=== PATIENT | female | born 1995 | race African-American/Black ===

== ENCOUNTER 2017-01-29 10:48 | Emergency (ER) | payer MEDICAID ==
[2017-01-29 10:55] VITALS: BP 110/67
--- NOTE | 2017-01-29 12:00 | UC ---
Throat Pain/Nasal Dieudonne HPI - HPI Summary HPI Summary: FOUR DAYS OF SINUS & FACIAL PRESSURE, FEVER. NO ALLERGIES. NO RASHES. NO SORE THROAT. - History of Current Complaint Chief Complaint: UCRespiratory Stated Complaint: SINUS ISSUE Time Seen by Provider: 01/29/17 11:11 Hx Obtained From: Patient Hx Last Menstrual Period: 01/23/17 Onset/Duration: Gradual Onset, Lasting Days, Worse Since - PROGRESSIVE Severity: Moderate Pain Intensity: 0 Pain Scale Used: 0-10 Numeric Cough: None Associated Signs & Symptoms: Positive: Sinus Discomfort, Nasal Discharge, Fever - Epiglottits Risk Factors Epiglottis Risk Factors: Negative - Allergies/Home Medications Allergies/Adverse Reactions: Allergies Allergy/AdvReac Type Severity Reaction Status Date / Time No Known Allergies Allergy Verified 03/29/15 10:59 PMH/Surg Hx/FS Hx/Imm Hx Previously Healthy: Yes - Surgical History Surgical History: None - Social History Occupation: Student Lives: With Family Alcohol Use: Occasionally Substance Use Type: None Smoking Status (MU): Current Every Day Smoker Type: Cigarettes Amount Used/How Often: <1/2 PPD Household Exposure Type: Cigarettes - Immunization History Vaccination Up to Date: Yes Review of Systems Constitutional: Negative Skin: Negative Eyes: Negative ENT: Nasal Discharge, Sinus Congestion Respiratory: Negative Cardiovascular: Negative Gastrointestinal: Negative Genitourinary: Negative Motor: Negative Neurovascular: Negative Musculoskeletal: Negative Neurological: Negative Psychological: Negative All Other Systems Reviewed And Are Negative: Yes Physical Exam Triage Information Reviewed: Yes Appearance: Well-Appearing, No Pain Distress, Well-Nourished Vital Signs: Initial Vital Signs Temp 99.1 F 01/29/17 10:52 Pulse 78 01/29/17 10:52 Resp 16 01/29/17 10:52 BP 110/67 01/29/17 10:52 Pulse Ox 100 01/29/17 10:52 Vital Signs Reviewed: Yes Eye Exam: Normal ENT: Positive: Pharynx normal, Nasal congestion, TM bulging, TM dull Dental Exam: Normal Neck exam: Normal Neck: Positive: Supple, Nontender, No Lymphadenopathy Respiratory Exam: Normal Respiratory: Positive: Chest non-tender, Lungs clear, Normal breath sounds, No respiratory distress, No accessory muscle use Cardiovascular Exam: Normal Cardiovascular: Positive: RRR, No Murmur, Pulses Normal Abdominal Exam: Normal Abdomen Description: Positive: Nontender, No Organomegaly Musculoskeletal Exam: Normal Musculoskeletal: Positive: Strength Intact, ROM Intact, No Edema Neurological Exam: Normal Psychological Exam: Normal Psychological: Positive: Normal Response To Family Skin Exam: Normal Throat Pain/Nasal Course/Dx - Differential Dx/Diagnosis Differential Diagnosis/HQI/PQRI: Tonsillitis, URI Provider Diagnoses: SINUSITIS Discharge - Discharge Plan Condition: Stable Disposition: HOME Prescriptions: Amoxicillin/Clavulanate TAB* [Augmentin TAB 875*] 875 mg PO BID #20 tab Fluticasone NASAL SPRAY 50MCG* [Flonase NASAL SPRAY 50MCG*] 2 spray BOTH NARES DAILY #1 btl Patient Education Materials: Sinusitis (ED) Referrals: [facility] [place] [facility] REFERRAL [Outside] Additional Instructions: PRIMARY CARE: There are four major types of clinical preventive care: immunizations, screening , behavioral counseling (sometimes referred to as lifestyle changes), and chemoprevention. All four apply throughout the life span. It is important to establish and to have access to a Primary Care Physician, not only for follow- up regrding acute and chronic problems, but also for preventative care.
== END 2017-01-29 11:52 | disposition home or self-care (01) ==
LOC: UCEAST 10:48
DX: J32.9 Chronic sinusitis, unspecified (principal); Z72.0 Tobacco use
CPT/HCPCS: 99212; G0463

== ENCOUNTER 2017-02-02 11:50 | Emergency (ER) | payer MEDICAID ==
[2017-02-02 11:58] VITALS: BP 104/66
--- NOTE | 2017-02-02 12:24 | UC ---
Ear Complaint HPI - HPI Summary HPI Summary: 21 YO FEMALE ON 4TH DAY OF AUGMENTIN FOR SINUSITIS HERE SINUSES ARE BETTER BUT NOW SHE COMPLAINS OF -YEAST VAGINAL INFECTION -RIGHT OTALGIA AND DECREASED HEARING -RIGHT CERVICAL SWOLLEN GLAND NO F/C - History of Current Complaint Chief Complaint: UCGeneralIllness Stated Complaint: SINUS/EAR/THROAT & YEAST INF Time Seen by Provider: 02/02/17 12:04 Hx Obtained From: Patient Hx Last Menstrual Period: Depo Shot Onset/Duration: Sudden Onset, Lasting Days Severity Initially: Mild Severity Currently: Mild Pain Intensity: 2 Pain Scale Used: 0-10 Numeric Associated Signs/Symptoms: Positive: Hearing Loss, URI Symptoms - NOW RESOLVED - Allergies/Home Medications Allergies/Adverse Reactions: Allergies Allergy/AdvReac Type Severity Reaction Status Date / Time No Known Allergies Allergy Verified 02/02/17 11:58 PMH/Surg Hx/FS Hx/Imm Hx Previously Healthy: Yes - Surgical History Surgical History: None - Family History Known Family History: Positive: Hypertension - Social History Alcohol Use: None Substance Use Type: None Smoking Status (MU): Heavy Every Day Tobacco Smoker Type: Cigarettes Amount Used/How Often: 1ppd Household Exposure Type: Cigarettes - Immunization History Vaccination Up to Date: Yes Review of Systems Constitutional: Negative Skin: Negative Eyes: Negative ENT: Sore Throat, Ear Ache Respiratory: Negative Cardiovascular: Negative Gastrointestinal: Negative Genitourinary: Negative Motor: Negative Neurovascular: Negative Musculoskeletal: Negative Neurological: Negative Psychological: Negative All Other Systems Reviewed And Are Negative: Yes Physical Exam Triage Information Reviewed: Yes Appearance: Well-Appearing, No Pain Distress, Well-Nourished Vital Signs: Initial Vital Signs Temp 98.8 F 02/02/17 11:54 Pulse 106 02/02/17 11:54 Resp 16 02/02/17 11:54 BP 104/66 02/02/17 11:54 Pulse Ox 100 02/02/17 11:54 Vital Signs Reviewed: Yes Eyes: Positive: Conjunctiva Clear ENT: Positive: Pharynx normal, TM bulging - RIGHT. Negative: Hearing grossly normal, Nasal congestion, Nasal drainage, Tonsillar swelling, Tonsillar exudate , Trismus, Muffled/hoarse voice Dental: Negative: Dental Fracture @ Neck: Positive: Supple, Enlarged Nodes @ - RIGHT ANT CERVICAL Respiratory: Positive: Lungs clear, Normal breath sounds, No respiratory distress Cardiovascular: Positive: RRR, No Murmur Musculoskeletal: Positive: ROM Intact Neurological: Positive: Alert Skin Exam: Normal Ear Complaint Course/Dx - Differential Dx/Diagnosis Provider Diagnoses: RIGHT CERVICAL ADENOPATHY. RIGHT SEROUS OTITIS MEDIA. YEAST VAGINITS BY HISTORY Discharge - Discharge Plan Condition: Stable Disposition: HOME Prescriptions: Fluconazole 150 MG (NF) [Diflucan 150 mg (NF)] 150 mg PO WEEKLY #2 tab Prednisone 60 mg PO DAILY #9 tab Patient Education Materials: Vulvovaginal Candidiasis (ED), Serous Otitis Media (ED) Referrals: [facility], [Primary Care Provider] - Additional Instructions: RECHECK FOR NEW OR WORSENING SYMPTOMS
== END 2017-02-02 12:20 | disposition home or self-care (01) ==
LOC: UCEAST 11:50
DX: R59.9 Enlarged lymph nodes, unspecified (principal); H65.91 Unspecified nonsuppurative otitis media, right ear; B37.3 Candidiasis of vulva and vagina; Z72.0 Tobacco use
CPT/HCPCS: 99212; G0463

== ENCOUNTER 2017-02-07 11:20 | Emergency (ER) | payer MEDICAID ==
[2017-02-07 11:30] VITALS: BP 103/67
[2017-02-07 12:49] LABS: EBV Response YES
--- NOTE | 2017-02-07 14:13 | UC ---
Lana Paniagua Alfonso, scribed for Zaid Gonzalez MD on 02/07/17 at 1212 . Skin Complaint HPI - HPI Summary HPI Summary: This patient is a 21 year old female presenting to [facility] c/o a diffuse rash since yesterday. The rash is pruritic and erythematous. Pt was discharged from [facility] on 02/02 with a prescription for Augmentin. Sx aggravated and alleviated by nothing. She reports sore throat (a few days) and sinus congestion (a few days). She denies SOB. Tobacco abuse disorder. Reports no known allergies. - History of Current Complaint Chief Complaint: UCRas Time Seen by Provider: 02/07/17 11:53 Stated Complaint: RASH Hx Obtained From: Patient Onset/Duration: Sudden Onset, Lasting Days - Yesterday, Still Present Timing: Constant Onset Severity: Moderate Current Severity: Moderate Location: Diffuse Aggravating: Nothing Alleviating: Nothing Associated Signs & Symptoms: Positive: Rash. Negative: Difficulty Breathing - Allergy/Home Medications Allergies/Adverse Reactions: Allergies Allergy/AdvReac Type Severity Reaction Status Date / Time No Known Allergies Allergy Verified 02/02/17 11:58 Review of Systems Skin: Rash - Diffuse ENT: Other - Negative SOB; Positive sore throat and sinus congestion All Other Systems Reviewed And Are Negative: Yes PMH/Surg Hx/FS Hx/Imm Hx - Surgical History Surgical History: None - Family History Known Family History: Positive: Hypertension - Social History Alcohol Use: None Substance Use Type: None Smoking Status (MU): Heavy Every Day Tobacco Smoker Type: Cigarettes Amount Used/How Often: 1ppd Household Exposure Type: Cigarettes - Immunization History Vaccination Up to Date: Yes Physical Exam Triage Information Reviewed: Yes Vital Signs: Initial Vital Signs Temp 98.1 F 02/07/17 11:25 Pulse 89 02/07/17 11:25 Resp 16 02/07/17 11:25 BP 103/67 02/07/17 11:25 Pulse Ox 100 02/07/17 11:25 Vital Signs Reviewed: Yes - Additional Comments The patient is well-nourished in no acute distress and in no acute pain. The skin is warm and dry and skin color reflects adequate perfusion. Diffuse maculopapular rashes at all extremities, chest, and trunk. This represents a most likely drug eruption rash. HEENT: The head is normocephalic and atraumatic. The pupils are equal and reactive. The conjunctivae are clear and without drainage. Nares are patent and without drainage. Tonsils are not enlarged. No exudates. Mouth reveals moist mucous membranes and the throat is without erythema and exudate. The external ears are intact. The ear canals are patent and without drainage. The tympanic membranes are intact. Neck is supple with full range of motion and non-tender. There are no carotid bruits. There is no neck vein distension. Respiratory: Chest is non-tender. Lungs are clear to auscultation and breath sounds are symmetrical and equal. Cardiovascular: Heart is regular rate and rhythm. There is no murmur or rub auscultated. There is no peripheral edema and pulses are symmetrical and equal. Abdomen: The abdomen is soft and non-tender. There are normal bowel sounds heard in all four quadrants and there is no organomegaly palpated. Musculoskeletal: There is good capillary refill. Neurological: Patient is alert and oriented to person, place and time. Psychiatric: The patient has an appropriate affect and does not exhibit any anxiety or depression. Course/Dx - Course Course Of Treatment: A 21-year-old F presents to [facility] with a CC of diffuse rash since yesterday. She reports sore throat (a few days) and sinus congestion (a few days). She denies SOB. Family doctor refers the pt for a monospot. Pt instructed to stop taking Augmentin. Pt will be discharged with PCP follow up in 3 days. Pt is agreeable with this plan. - Differential Diagnoses - Skin Complaint Differential Diagnoses: Allergic Reaction, Drug Rash, Other - mono - Diagnoses Provider Diagnoses: drug rash secondary to amoxicillin Discharge - Discharge Plan Condition: Stable Disposition: HOME Prescriptions: diPHENhydraMINE PO* [Benadryl PO 50 MG CAP*] 50 mg PO Q6H PRN #30 cap PRN Reason: rash predniSONE TAB* [Deltasone TAB*] 60 mg PO DAILY #15 tab Patient Education Materials: Allergies (ED), Antibiotic Medication Allergy (ED) Referrals: [facility], [Primary Care Provider] - 3 Days Additional Instructions: Stop taking Augmentin. The documentation as recorded by the Lana velázquez Alfonso accurately reflects the service I personally performed and the decisions made by , Zaid Gonzalez MD.
[2017-02-07 17:27] LABS: Manual Entry Verification MD; Mono Internal Control QC Line Present
[2017-02-09 12:10] LABS: EBV Capsid Ag IgG Ab Positive (Negative); EBV Capsid Ag IgM Ab Negative (Negative)
== END 2017-02-07 12:20 | disposition home or self-care (01) ==
LOC: UCEAST 11:20
DX: L27.0 Generalized skin eruption due to drugs and medicaments taken internally (principal); T36.0X5A Adverse effect of penicillins, initial encounter; F17.210 Nicotine dependence, cigarettes, uncomplicated
CPT/HCPCS: 36415; 86308; 86664; 86665; 99212; G0463

== ENCOUNTER 2018-04-18 14:07 | Emergency (ER) | payer MEDICAID ==
[2018-04-18 14:22] VITALS: BP 129/61
--- NOTE | 2018-04-18 14:44 | UC ---
Skin Complaint HPI - HPI Summary HPI Summary: 23 yo female presents with bug bites on body. She tells me that she slept at the [facility] last night and woke up this morning with itching to her left arm. Noticed some red spots that looked like bug bites. She thinks she was bitten by bed bugs. Very itchy. Denies fever, chills, drainage, or bleeding. - History of Current Complaint Chief Complaint: UCSkin Time Seen by Provider: 04/18/18 14:44 Stated Complaint: BUG BITE Hx Obtained From: Patient Hx Last Menstrual Period: 04/04/18 Onset/Duration: Sudden Onset Onset Severity: Moderate Current Severity: Moderate Pain Intensity: 6 Pain Scale Used: 0-10 Numeric - Allergy/Home Medications Allergies/Adverse Reactions: Allergies Allergy/AdvReac Type Severity Reaction Status Date / Time No Known Allergies Allergy Verified 04/18/18 14:22 Review of Systems Constitutional: Negative Skin: Other - Bug bites Respiratory: Negative Cardiovascular: Negative Neurovascular: Negative Neurological: Negative Psychological: Negative All Other Systems Reviewed And Are Negative: Yes PMH/Surg Hx/FS Hx/Imm Hx - Additional Past Medical History Additional PMH: None - Surgical History Surgical History: None - Family History Known Family History: Positive: Hypertension - Social History Occupation: Employed Full-time Lives: With Family Alcohol Use: None Substance Use Type: None Smoking Status (MU): Heavy Every Day Tobacco Smoker Type: Cigarettes Amount Used/How Often: 1/2ppd Household Exposure Type: Cigarettes - Immunization History Vaccination Up to Date: Yes Physical Exam - Summary Physical Exam Summary: GENERAL: NAD. WDWN. No pain distress. SKIN: Left neck and left UE with scattered bug bites with mild surrounding erythema. NTTP. No warmth or streaking. No streaking, bleeding, or drainage. NECK: Supple. Nontender. No lymphadenopathy. CHEST: No accessory muscle use. Breathing comfortably and in no distress. CV: Pulses intact. Cap refill <2seconds NEURO: Alert. PSYCH: Age appropriate behavior. Triage Information Reviewed: Yes Vital Signs: Initial Vital Signs Temp 98.1 F 04/18/18 14:19 Pulse 81 04/18/18 14:19 Resp 18 04/18/18 14:19 BP 129/61 04/18/18 14:19 Pulse Ox 100 04/18/18 14:19 Vital Signs Reviewed: Yes Course/Dx - Course Course Of Treatment: Bed bugs. Rx for steroid cream. Advised to change hotel rooms/location. - Diagnoses Provider Diagnoses: Bed bug bites Discharge - Sign-Out/Discharge Documenting (check all that apply): Patient Departure All imaging exams completed and their final reports reviewed: No Studies - Discharge Plan Condition: Stable Disposition: HOME Prescriptions: Triamcinolone 0.1% CREAM(NF) [Kenalog Cream 0.1%(NF)] 1 applic TOPICAL BID #1 tube Patient Education Materials: Bed Bugs (ED) Referrals: No Primary Care Phys,[facility]OP[facility] [Primary Care Provider] - Additional Instructions: If you develop a fever, shortness of breath, chest pain, new or worsening symptoms - please call your PCP or go to the ED. - Billing Disposition and Condition Condition: STABLE Disposition: Home
== END 2018-04-18 15:02 | disposition home or self-care (01) ==
LOC: UCEAST 14:07
DX: S40.862A Insect bite (nonvenomous) of left upper arm, initial encounter (principal); W57.XXXA Bitten or stung by nonvenomous insect and other nonvenomous arthropods, initial encounter; Y93.9 Activity, unspecified; Y92.59 Other trade areas as the place of occurrence of the external cause; F17.210 Nicotine dependence, cigarettes, uncomplicated
CPT/HCPCS: 99212; G0463

== ENCOUNTER 2023-08-27 07:19 | Inpatient (IN) ==
[2023-08-27] MEDS ORDERED: Lactated Ringers 1000 ml BAG 1,000 ML IV ONE (08:18)
[2023-08-27] MEDS ORDERED: Lidocaine 1% VIAL 10 MG/ML 30 ML VIAL INJ PRN (08:18)
[2023-08-27] MEDS ORDERED: Buffered Lidocaine 1% SYRIN 1 ml INTRADERM ONE (08:18)
[2023-08-27] MEDS ORDERED: Witch Hazel PAD JAR TOPICAL PRN (08:22)
[2023-08-27] MEDS ORDERED: Dibucaine 1% OINT 28.35 GM TUBE PR PRN (08:22)
[2023-08-27] MEDS ORDERED: Glycerin ADULT 2.4 gm SUPP PR PRN (08:22)
[2023-08-27] MEDS ORDERED: Oxytocin in LR 20,000 MILLI.UNIT/1,000 ML BAG IV SCH (08:25)
[2023-08-27] MEDS ORDERED: Lactated Ringers 1000 ml BAG 1,000 ML IV SCH ×2 (09:00)
[2023-08-27 11:10] LABS: Hematocrit 34.8 % (35-45); Hemoglobin 10.8 g/dL (11.5-14.3); Mean Corpuscular Hemoglobin 21.8 pg (27-33); Mean Corpuscular Hgb Conc 31.2 g/dL (31-36); Mean Corpuscular Volume 69.9 fL (80-97); Mean Platelet Volume 10.4 fL (7.5-11.2); Platelet Count 190 10^3/uL (150-450); Red Blood Count 4.97 10^6/uL (3.63-4.92); Red Cell Distribution Width 15.4 % (12-17); White Blood Count 11.9 10^3/uL (3.8-11.8)
[2023-08-27 11:20] LABS: Albumin 2.8 g/dL (3.2-5.2); Albumin/Globulin Ratio 0.8 (1-3); Calcium 8.2 mg/dL (8.6-10.3); Creatinine, Serum 0.91 mg/dL (0.51-0.95); Globulin 3.6 g/dL (2-4); Potassium 4.6 mmol/L (3.5-5.0); Total Bilirubin 0.3 mg/dL (0.2-1.0); Total Protein 6.4 g/dL (6.4-8.9); eGFR CKD-EPI 88.7 (>60)
[2023-08-27 12:25] LABS: ABS Lymphocytes 0.8 10^3/uL (1.0-4.8); ABS Monocytes 0.6 10^3/uL (0.0-0.9); ABS Neutrophils 10.5 10^3/uL (1.5-7.6); ABS Nucleated RBC 0.01 10^3/ul; Eosinophil % 0.1 %; Large Platelets Present; Lymphocyte % 6.9 %; Nucleated Red Blood Cells % 0.1 %/100WBC (0.0-0.8)
[2023-08-27 12:34] LABS: Urine Benzodiazepine Screen None Detected (None Detect); Urine Cannabinoids Screen None Detected (None Detect); Urine Opiates Screen Presumptive Positive (None Detect)
[2023-08-27] MEDS ORDERED: Ondansetron ODT 4 mg TAB 4 MG TAB PO PRN (13:26)
[2023-08-27] MEDS: Nicotine PATCH 21 MG/24 HR PATCH TRANSDERM SCH (14:04)
[2023-08-27 14:43] LABS: HIV 4th Generation Nonreactive (Nonreactive)
[2023-08-27 15:35] LABS: Hepatitis B Surface Antigen Nonreactive (Nonreactive)
[2023-08-28 09:04] LABS: ABS Monocytes 0.7 10^3/uL (0.0-0.9); ABS Neutrophils 5.7 10^3/uL (1.5-7.6); ABS Nucleated RBC 0.01 10^3/ul; Eosinophil % 0.4 %; Hematocrit 29.3 % (35-45); Hemoglobin 9.3 g/dL (11.5-14.3); Lymphocyte % 23.3 %; Mean Corpuscular Hgb Conc 31.8 g/dL (31-36); Mean Corpuscular Volume 69.1 fL (80-97); Nucleated Red Blood Cells % 0.1 %/100WBC (0.0-0.8); Platelet Count 194 10^3/uL (150-450); Red Blood Count 4.23 10^6/uL (3.63-4.92); White Blood Count 8.4 10^3/uL (3.8-11.8)
[2023-08-28] MEDS: Nicotine PATCH 21 MG/24 HR PATCH TRANSDERM SCH (09:11)
[2023-08-28 12:47] LABS: Hepatitis C Antibody Reactive (Negative)
[2023-08-29] MEDS: Nicotine PATCH 21 MG/24 HR PATCH TRANSDERM SCH (07:09)
[2023-08-29 07:52] VITALS: BP 126/78
[2023-08-29 11:06] LABS: Hepatitis Be Antibody Negative (Negative)
== END 2023-08-29 08:48 | DRG 544 ==
LOC: MCHOB 07:19
PROVIDERS: ADMIT Obstetrics & Gynecology; ATTEND Obstetrics & Gynecology